=== PATIENT | female | born 1975 | race Caucasian/White ===

== ENCOUNTER 2020-03-28 11:20 | Outpatient (CLI) | payer OTHER, SELFPAY ==
--- NOTE | 2020-03-28 11:24 | ECG_ITS ---
Measurements Intervals [place] Rate: 76 P: 38 CO: 165 QRS: 29 QRSD: 94 T: 12 QT: 377 QTc: 424 Interpretive Statements SINUS RHYTHM LOW QRS VOLTAGE IN PRECORDIAL LEADS BORDERLINE ECG Electronically Signed On 03-28-2020 11:42:40 CDT by Jh Hankins D.O.
== END 2020-03-28 11:21 | disposition home or self-care (01) ==
PROVIDERS: PCP Nurse Practitioner Adult Health; Visit Provider Orthopaedic Surgery
DX: Z01.818 Encounter for other preprocedural examination (principal); F17.200 Nicotine dependence, unspecified, uncomplicated; I10 Essential (primary) hypertension
CPT/HCPCS: 93005

== ENCOUNTER 2020-04-01 00:38 | Outpatient (CLI) | payer OTHER, SELFPAY ==
[2020-04-01 19:34] LABS: SARS-CoV-2 RNA PCR Negative
== END 2020-04-01 00:39 | disposition home or self-care (01) ==
LOC: ANHCOVIDDT 00:38
PROVIDERS: PCP Nurse Practitioner Adult Health; Visit Provider Orthopaedic Surgery
DX: Z01.812 Encounter for preprocedural laboratory examination (principal); Z11.59 Encounter for screening for other viral diseases
CPT/HCPCS: 87635; C9803; U0003

== ENCOUNTER 2020-04-02 12:31 | Outpatient (CLI) | payer OTHER, SELFPAY ==
--- NOTE | ~2020-04-02 | CT_ITS ---
EXAMINATION: CTA chest EXAM DATE: 04/02/2020 13:24 INDICATION: Aortic aneurysm. TECHNIQUE: Spiral CT of the chest angiogram following intravenous injection of 100 mL Omnipaque 350. Axial, coronal and sagittal images were reviewed. Coronal maximum intensity pixel images of chest r eviewed. Maximum intensity projection 3-D reconstructions of the arteries were created by the techno logist on dedicated workstation. The dose-length product (DLP) for this examination was 837.88 mGy-c m. The exposure was tailored according to patient size (auto mA exposure control), and iterative rec onstruction (ASIR) was used as additional dose reduction technique. There is no prior study for rudy tong. FINDINGS: The aortic root measures 4.7 cm, narrows to about 4 cm and then dilates again to 4.7 cm lo ng the ascending aorta. There is no thoracic aortic dissection. No central pulmonary emboli. There is no focal acute air space disease. There are no pleural or pericardial effusions. Tracheobronchia l tree is patent. There is no mediastinal, hilar or axillary lymphadenopathy. There is no pneumot horax. Heart normal in size. No evidence of coronary arterial calcification. Upper abdomen is un remarkable. There is mild thoracic spondylosis without osteoblastic or osteolytic lesions identifie d. IMPRESSION: Aortic root, ascending aortic aneurysms at 4.7 cm Reviewed, dictated and finalized at location A.
[2020-04-02 13:18] LABS: Estimated Glomerular Filt Rate > 60
== END 2020-04-02 12:32 | disposition home or self-care (01) ==
PROVIDERS: PCP Nurse Practitioner Adult Health
DX: I71.2 Thoracic aortic aneurysm, without rupture (principal)
CPT/HCPCS: 71275; Q9967

== ENCOUNTER 2020-04-03 02:20 | Day surgery (SDC) | payer OTHER, SELFPAY ==
[2020-03-25 09:42] VITALS: BMI 39.2
--- NOTE | 2020-03-29 14:13 | PM.IMHP ---
H&P: HPI History of Present Illness Date/Time: 03/29/20 14:13 Chief complaint: Rotator Cuff Tear Left Shoulder Narrative: Mari Rosado is a 44 year old female Who presents with left shoulder pain. She has aching pain worse with activity somewhat relieved by rest. Most of her pain is from overhead type motion or trying to do any heavy pushing or pulling or lifting. She states she had a fall a couple months back since that time her symptoms have worsened. Patient apparently had some weakness trouble raising her arm up overhead pain in the shoulder radiates into her upper arm. Despite conservative measures including cortisone therapy and anti-inflammatories the symptoms continue. She had an MRI scan which shows a fairly large traumatic rupture of the rotator cuff. She has a 13 mm full-thickness tear the anterior insertion of the supraspinatus tendon, there is tendinitis and a possible small full-thickness tear of the anterior superior fibers of the subscapularis as well. The infraspinatus and teres minor are noted to be intact. Bicipital tendon and labral complex were noted be unremarkable. She has a fairly large tear this needs to be repaired especially at her relatively young age. The patient has discuss further treatment options in detail with Dr. Thompson she would now to proceed with surgical intervention. Review of Systems Review of Systems: All systems reviewed & are unremarkable except as noted in HPI and below PMFSH Social History Social History Smoking packs per day: 1 Smoking cigarettes per day: 20.0 Smoking end date: 10/23/16 Spiritual care concerns: No Meds Home Medications and Allergies Home Medications Medication Instructions Recorded Confirmed Type carvedilol 6.25 mg PO BID 03/25/20 03/25/20 History cyanocobalamin (vitamin B-12) 1,000 mcg SUBCUT MONTHLY 03/25/20 03/25/20 History desogestrel-ethinyl estradiol 1 tablet PO DAILY 03/25/20 03/25/20 History [Apri] paroxetine HCl 40 mg PO DAILY 03/25/20 03/25/20 History Allergies Allergy/AdvReac Type Severity Reaction Status Date / Time Penicillins Allergy Severe Hives Verified 03/25/20 09:39 Exam Narrative: Exam Narrative: The patient is noted be a well-developed well-nourished female no acute distress. She is alert and oriented x3. Normal mood and affect. Hearing and vision intact. HEENT exam within normal limits. Heart regular rate rhythm. Lungs clear to auscultation. Abdomen benign. Extremities showed the patient's left shoulder to be painful with manipulation and range of motion. She has a positive impingement sign and significant weakness and pain reproduction with rotator cuff strength testing, external rotation and abduction are noted to be significantly weak. She has full passive motion, shoulder joint is otherwise stable. She has full painless neck motion. Neurovascularly she is intact. Skin is intact. Central nervous system exam within normal limits. Assessment and Plan Additional Plan By MRI and exam the patient is noted to have impingement with AC joint arthrosis rotator cuff tendinitis and a fairly large traumatic rotator cuff tendon tear of the left shoulder. The patient has discussed risks benefits limitations and alternatives to surgery in great detail with Dr. Thompson she is noted to proceed with left shoulder arthroscopy acromioplasty open distal clavicle excision and rotator cuff tendon repair proceed as indicated. The patient is scheduled to go surgery 04/03/2020 at [facility] Dr. Thompson. The patient voiced understanding and agrees with the above plan.
[2020-04-03 06:24] VITALS: BP 120/78; PULSE 67; RESP 20; TEMP 36.5; O2SAT 98
[2020-04-03] MEDS: ACETAMINOPHEN 500 MG TABLET 1000 MG PO (06:29)
[2020-04-03] MEDS: LACTATED RINGERS 1,000 ML 30 ML IV CONT ×2 (06:35→08:49)
[2020-04-03] MEDS: KETOROLAC 15 MG/ML VIAL (*BKC) IV PUSH (06:35)
--- NOTE | 2020-04-03 06:58 | WPDANESEPPF ---
Anes - Initial Pre Proc Eval Procedure: Operation Date: 04/03/20 07:30 Proposed Procedures p Left Shoulder Arthroscopy, Acromioplasty,Open Distal Clavicle Excision, Open Rotator Repair, Proceed As Indicated - Noe Thompson MD Date/Time: 04/03/20 06:58 Surgeon: Noe Thompson MD Pre Op Diagnosis: Rotator Cuff Tear Left Shoulder Patient Data Age: 44 Gender: F Height: 5 ft 7 in Weight: 111.2 kg Last Vital Signs Temp 36.5 C 04/03/20 06:24 Pulse 67 04/03/20 06:24 Resp 20 04/03/20 06:24 BP 120/78 04/03/20 06:24 Pulse Ox 98 04/03/20 06:24 Allergies Allergy/AdvReac Type Severity Reaction Status Date / Time Penicillins Allergy Severe Hives Verified 04/03/20 06:44 Home Medications Medication Instructions Recorded Confirmed Type carvedilol 6.25 mg PO BID 03/25/20 04/03/20 History cyanocobalamin (vitamin B-12) 1,000 mcg SUBCUT MONTHLY 03/25/20 04/03/20 History desogestrel-ethinyl estradiol 1 tablet PO DAILY 03/25/20 04/03/20 History [Apri] paroxetine HCl 40 mg PO DAILY 03/25/20 04/03/20 History Patient hx anesthesia problems: none Family hx anesthesia problems: none PMFSH Past Medical History Medical History Anxiety Ascending aortic aneurysm Bicuspid aortic valve Depression Hypertension Social History Social History Smoking packs per day: 1 Smoking cigarettes per day: 20.0 Smoking end date: 10/23/16 Living arrangements: with family Spiritual care concerns: No Anes - Eval Final PreProcedure Day of Procedure 04/03/20 06:58 Patient weight: obese Heart: regular rate and rhythm Lungs: decreased breath sounds Airway: Mallampati scale class III Neurological: alert and oriented Last oral intake: >/= 8 hours ASA classification: III Emergent: no Anesthetic plan: proceed Anesthesia type and monitoring: general ETT and standard monitoring Informed Consent: The patient's anesthetic plan and its attendant risks and benefits were discussed with the patient/family/POA. Questions were solicited and answers provided to the satisfaction of the patient/family/POA.
--- NOTE | 2020-04-03 07:13 | WPDHPUPDATE1 ---
History and Physical Update Update Date/Time: 04/03/20 07:13 History and Physical has been reviewed, including an updated exam of the patient. There are NO changes in the patient's condition. Risks, benefits, and alternatives have been discussed and questions answered. Patient agrees to proceed with procedure.
[2020-04-03] MEDS: CLINDAMYCIN 900 MG/NS 50 ML 900 MG/50 ML PIGGYBACK 50 MG IVPB (07:30)
--- NOTE | 2020-04-03 07:32 | WPDANESPNB ---
Anes - Peripheral Nerve Block Date/Time: 04/03/20 07:32 I have discussed with the patient/family/POA the placement of a peripheral nerve block for post-operative pain management, including associated risks, benefits, complications, and side effects. Alternative methods of post-operative analgesia were detailed. Questions were solicited and answers provided to the satisfaction of the patient/family/POA. Time-Out: A pre-procedural Time-Out was completed immediately before starting the procedure and confirmed: Patient Identification, Site, Procedure, Patient Position and the Availability of Requisite Equipment. Clinical Indications: Acute post-operative pain management requested by the operative surgeon. Nerve Block Insertion Note Anes-nerve block: interscalene left Patient position: other (sitting) Skin prep: chlorhexidine Needle: 22 gauge, stimulating, insulated echogenic needle. Needle length: 50 mm Technique: nerve stimulation lost at (mA) (0.3) and ultrasound Technique comment: mid2mg fent 100mcg Injectate: bupivacaine 0.5% with epi 5 mcg/ml (30ml) and dexamethasone (mg) (4) Observations: tolerated well Complications: none Procedure start time:: 718 Procedure end time:: 725
[2020-04-03] MEDS: LIDO 1%/EPINEPHRINE 1:100,000 20 ML VIAL INFILTRATE (07:59)
--- NOTE | 2020-04-03 08:31 | P.OP_ITS ---
Procedure Note - Detailed Date of procedure: 04/03/20 Pre-op diagnosis: Rotator Cuff Tear Left Shoulder Post-op diagnosis: same Anesthesia: GETA Surgeon: Noe Thompson MD Patient brought to OR &. Anesthetic given and placed in the beach chair position Left Shoulder. Posterior and lateral portals used. Acromioplasty done and bursa debrided. Open distal clavicle excision done with repair of the rotator cuff tear after deltoid split. Tear was Dime-Nickel size. Repaired with #2 Ethibond. Deltoid repaired to itself the scromion and trapezius with 2 eithbond. Sking closed with 2-0 Vicryl and nona. Senior Lead Project Manager: Aung Frost Estimated blood loss (mL): 50 Drains: No Packing: No Pathology: none sent Complications: No immediate complications Condition: stable Disposition: PACU
[2020-04-03 08:49] VITALS: BP 130/95; PULSE 90; RESP 20; TEMP 36.4; O2SAT 95
[2020-04-03 09:05] VITALS: BP 113/83; PULSE 79; RESP 16; O2SAT 95
[2020-04-03 09:20] VITALS: BP 125/78; PULSE 80; RESP 16; O2SAT 96
[2020-04-03 09:30] VITALS: BP 125/86; PULSE 77; RESP 15; O2SAT 97
[2020-04-03 09:33] VITALS: BP 143/81; PULSE 78; RESP 20
--- NOTE | 2020-04-03 10:17 | SUR.PHASEII ---
PT ASSISTED WITH DRESSING HOLDING LEFT ARM FOR HER. WAITING FOR RIDE.
== END 2020-04-03 10:45 | disposition home or self-care (01) ==
PROVIDERS: PCP Nurse Practitioner Adult Health; Visit Provider Orthopaedic Surgery
PROC: (CPT 29805; principal; 2020-04-03 07:30)
DX: S46.012A Strain of muscle(s) and tendon(s) of the rotator cuff of left shoulder, initial encounter (principal); M75.42 Impingement syndrome of left shoulder; G89.18 Other acute postprocedural pain; I10 Essential (primary) hypertension; M19.012 Primary osteoarthritis, left shoulder; F41.9 Anxiety disorder, unspecified; F32.9 Major depressive disorder, single episode, unspecified; I71.2 Thoracic aortic aneurysm, without rupture; Z95.4 Presence of other heart-valve replacement; F17.210 Nicotine dependence, cigarettes, uncomplicated; Z79.899 Other long term (current) drug therapy; X50.3XXA Overexertion from repetitive movements, initial encounter; X50.1XXA Overexertion from prolonged static or awkward postures, initial encounter
CPT/HCPCS: 23120; 29822; 23410; 64415; A4565; A9270; J1100; J1885; J2250; J2370; J2405; J2704; J3010; J7120